=== PATIENT | male | born 1990 | race African-American/Black ===

== ENCOUNTER 2020-07-01 20:21 | Emergency (ER) | payer SELFPAY ==
--- NOTE | ~2020-07-01 | CT_ITS ---
EXAMINATION: CT soft tissue neck chest w DATE: 07/01/2020 22:12 INDICATION: Neck swelling TECHNIQUE: Computed tomography (CT) of the neck and chest was performed with 75 cc of Omnipaque 350 i ntravenous contrast. The dose-length product (DLP) was 1250.71 mGy-cm. Automated exposure control and iterative reconstruction technique were employed. COMPARISON: None FINDINGS: Neck CT: There is an ill-defined soft tissue mass measuring approximately 4.7 cm situated in the naso pharynx. There is some extension inferiorly into the oropharynx. No discrete fluid collection is iden tified. The nasopharynx is essentially occluded by the mass. There is minimal opacification of the le ft maxillary sinus. There is mild cervical lymphadenopathy.. Chest CT: There are mild dependent airspace opacities of the lungs. No pleural effusion or pneumothor ax is identified. No pathologically enlarged thoracic lymph nodes are identified. The heart size is n ormal. IMPRESSION: 1. Ill-defined mass centered in the nasopharynx entering approximately 4.7 cm. Finding could reflect phlegmon however no discrete fluid collection is identified. ENT evaluation is recommended. 2. Mild cervical lymphadenopathy, possibly reactive. Reviewed, dictated and finalized at location A. GENETIC TECHNICIAN IMPRESSION: 1. Ill-defined mass centered in the nasopharynx entering approximately 4.7 cm. Finding could reflect phlegmon however no discrete fluid collection is identifi ed. ENT evaluation is recommended. 2. Mild cervical lymphadenopathy, possibly reactive.
[2020-07-01 20:29] VITALS: BP 142/100; PULSE 102; RESP 18; TEMP 36.3; O2SAT 98
--- NOTE | 2020-07-01 20:39 | ED.GENADULT ---
HPI - General Adult General Chief complaint: Dental/Oral <Clarissa Arriaga PA-C - Last Filed: 07/01/20 23:10> Stated complaint: swollen throat <Clarissa Arriaga PA-C - Last Filed: 07/01/20 23:10> Time Seen by Provider: 07/01/20 20:39 <Clarissa Arriaga PA-C - Last Filed: 07/01/20 23:10> Source: patient and family <Clarissa Arriaga PA-C - Last Filed: 07/01/20 23:10> Mode of arrival: ambulatory <Clarissa Arriaga PA-C - Last Filed: 07/01/20 23:10> Limitations: no limitations <Clarissa Arriaga PA-C - Last Filed: 07/01/20 23:10> History of Present Illness HPI narrative: Patient states he woke up yesterday with a slightly sore throat and today he was having difficulty swallowing and his voice is muffled. Denies any fever, any dental issues. <Clarissa Arriaga PA-C - Last Filed: 07/01/20 23:10> Onset (ago): day(s) <Clarissa Arriaga PA-C - Last Filed: 07/01/20 23:10> Radiation: non-radiation <Clarissa Arriaga PA-C - Last Filed: 07/01/20 23:10> Severity: moderate <Clarissa Arriaga PA-C - Last Filed: 07/01/20 23:10> Quality: burning <Clarissa Arriaga PA-C - Last Filed: 07/01/20 23:10> Relieving factors: none <JERRY Huddleston Last Filed: 07/01/20 23:10> Associated symptoms: denies other symptoms <Clarissa Arriaga PA-C - Last Filed: 07/01/20 23:10> Treatments prior to arrival: other (Nyquil) <JERRY Huddleston Last Filed: 07/01/20 23:10> Related Data Allergies/adverse reactions: Allergies Allergy/AdvReac Type Severity Reaction Status Date / Time No Known Allergies Allergy Unverified 08/26/19 11:39 <Clarissa Arriaga PA-C - Last Filed: 07/01/20 23:10> Review of Systems Review of Systems: All systems reviewed & are unremarkable except as noted in HPI and below <Clarissa Arriaga PA-C - Last Filed: 07/01/20 23:10> [facility] Surgical History Surgical History: Surgical History H/O right knee surgery Patient stated he had a cyst removed <Clarissa Arriaga PA-C - Last Filed: 07/01/20 23:10> Family History Family History: Family History Father Boston's palsy Diabetes mellitus Hypertension Mother Diabetes mellitus <Clarisas Arriaga PA-C - Last Filed: 07/01/20 23:10> Social History Social History: Social History Social History: The patient has 2 children a son and a daughter. He is single and he does not have a designated durable power traffic law attorney. The patient desires to be a full code. Patient stated that he stop smoking this past summer. He smoked a pack a cigarettes a day for about 5 or 6 years. He does occasionally smoke marijuana but does not use any other street drugs. 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 [employer] Gender identity (if verbalized by the patient): Male Agree to blood products: Yes <Clarissa Arriaga PA-C - Last Filed: 07/01/20 23:10> Exam Const: General: no acute distress and alert <Clarissa Arriaga PA-C - Last Filed: 07/01/20 23:10> Orientation/consciousness: patient oriented x3 <Clarissa Arriaga PA-C - Last Filed: 07/01/20 23:10> HENMT: Head: normal to inspection <Clarissa Arriaga PA-C - Last Filed: 07/01/20 23:10> 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
[2020-07-01 21:26] LABS: Basophils Absolute Auto 0.1 K/mm3 (0.0-0.1); Basophils Percent Auto 0.7 % (0.2-1.2); Eosinophils Absolute Auto 0.2 K/mm3 (0-0.3); Eosinophils Percent Auto 1.9 % (0-4.4); Hematocrit 53.5 % (42.0-52.0); Hemoglobin 18.9 g/dL (14.0-18.0); Immature Granulocyte Absolute 0.04 K/mm3 (0.00-0.031); Immature Granulocyte Percent A 0.4 % (0-0.5); Lymphocytes Absolute Auto 2.92 K/mm3 (0.9-3.2); Lymphocytes Percent Auto 26.4 % (18.3-44.2); Mean Corpuscular HGB Conc 35.3 g/dl (32-36); Mean Corpuscular Hemoglobin 30.8 pg (26-34); Mean Corpuscular Volume 87.3 fl (80-100); Mean Platelet Volume 9.2 fl (7.4-10.4); Neutrophils Absolute Auto 6.8 K/mm3 (1.3-6.7); Neutrophils Percent Auto 61.6 % (45.5-73.1); Platelet Count Result 370 k/mm3 (150-375); Red Blood Count 6.13 M/mm3 (4.6-6.20); Red Cell Distribution Width 12.1 % (11.5-14.5)
[2020-07-01 21:43] LABS: Anion Gap 9 mmol/L (8-16); Blood Urea Nitrogen 9 mg/dL (9-20); Calcium 9.4 mg/dL (8.4-10.2); Carbon Dioxide 33 mmol/L (22-30); Chloride 99 mmol/L (98-107); Estimated CRCL calculation 126 ml/min; Estimated Glomerular Filt Rate > 60; Glucose 91 mg/dL (75-110); Sodium 141 mmol/L (137-145)
[2020-07-01 23:07] VITALS: BP 126/85; PULSE 67; RESP 16; O2SAT 100
[2020-07-02] MEDS: AMOXICILLIN 500 MG CAPSULE PO (00:45)
[2020-07-02 00:53] VITALS: BP 142/90; PULSE 76; RESP 18; O2SAT 97
== END 2020-07-02 00:55 | disposition home or self-care (01) ==
PROVIDERS: Physician Assistant; Emergency Provider General Practice
DX: J39.2 Other diseases of pharynx (principal); Z87.891 Personal history of nicotine dependence
CPT/HCPCS: 36415; 70491; 71260; 80048; 85025; 87081; 87147; 87880; 96374; 99284; A9270; J1100; Q9967